=== PATIENT | female | born 1990 | race Caucasian/White ===

== ENCOUNTER 2023-08-09 08:36 | Emergency (ER) | payer BC, SELFPAY ==
[2023-08-09 08:47] VITALS: BP 127/86
[2023-08-09] MEDS: NSS 1000 IV (09:33)
[2023-08-09] MEDS: ZOFRAN 4 MG IV (09:33)
[2023-08-09 09:34] VITALS: BMI 17.9
[2023-08-09 09:36] LABS: % Basophils 0.9 % (0-2); % Immature Granulocytes 0.5 % (0-0.5); % Lymphocytes 6.1 % (20.5-51.1); % Monocytes 2.3 % (1.7-9.3); % Neutrophils 90.2 % (42.2-75.2); Absolute Basophils 0.1 10^3/uL (0-0.2); Absolute Immature Granulocytes 0.1 10^3/uL (0-0.05); Absolute Lymphocytes 0.7 10^3/uL (1.2-3.4); Absolute Monocytes 0.3 10^3/uL (0.1-0.6); Absolute Neutrophils 10.8 10^3/uL (1.4-6.5); Hematocrit 37.4 % (37.0-47.0); Hemoglobin 12.7 g/dL (12.0-16.0); Mean Corpuscular Hgb 28.2 pg (27.0-31.0); Mean Corpuscular Volume 82.9 fL (81.0-99.0); Mean Platelet Volume 10.2 fL (7.4-10.4); Nucleated Red Blood Cells % 0 %; Platelet Count 306 10^3/uL (130-400); Red Blood Cell Count 4.51 10^6/uL (4.20-5.40); Red Cell Dist. Width 12.6 % (11.5-14.5); White Blood Cell Count 11.9 10^3/uL (4.8-10.8)
--- NOTE | 2023-08-09 09:45 | ED.GENMED ---
History of Present Illness
General
Chief Complaint: Fainting/Passed Out
Source: patient and family
Exam Limitations: none
Time Seen by Provider: 08/09/23 08:52
Nursing documentation reviewed up to this point in time: agreed with
Travel History
Have you had any contact with someone who has COVID-19?: No
Do you have any symptoms of coronavirus? Fever > 100 degrees, chills, cough, shortness of breath, sore throat, loss of taste or smell, muscle aches, or headache?: No
History of Present Illness
History of Present Illness:
32-year-old female with past medical history of iron deficiency anemia presenting to the emergency department today with concerns of a syncopal episode prior to arrival. She claims that she had a mild headache and some lightheadedness last night
went to sleep and woke up early this morning 67 hours prior to arrival felt very nauseous and that she had to go to the bathroom stood up to go to the bathroom felt lightheaded and passed out to the ground is unsure how long she was unconscious as
nobody witnessed this specifically did wake up to see there was a laceration to her left lower lip. Then went to the bathroom had a large amount of diarrhea and ongoing vomiting for the next hour or so. Nobody around her was specifically sick. No
chest pain or shortness of breath no palpitations.
Review of Systems
Review of Systems
Allergies reviewed?: Yes
All Other Systems: ROS reviewed and negative except as documented in HPI and ROS
Phy Exam
Physical Exam
Physical Exam:
GENERAL: Alert , in no apparent distress
EYE: pupils equal and reactive
NECK: Supple, no significant adenopathy.
ENT: 1 cm laceration to the left lower lip does not cross the vermilion border is parallel to the lip just roughly 1 cm inferior to the left side. Does not appear to be through and through. o/p clr, mmm.
CARDIAC: Regular rate and rhythm .
LUNGS: Clear breath sounds bilaterally, no acute respiratory distress, no wheezes/rales/rhonchi
ABDOMEN: Soft, without focal tenderness, no r/g, no cvat
NEUROLOGICAL: Alert and oriented, no focal neuro deficits
SKIN: Warm and dry, skin intact.
MUSCULOSKELETAL: No edema, well perfused.
PSYCH: Normal and appropriate interaction.
Course
Orders/Labs/Results
Orders:
Orders
08/09/23 08:54
0.9% Sodium Chloride 1000 ml [Nss] 1,000 ml IV BOLUS
Ondansetron Injectable [Zofran] 4 mg IV NOW STA
08/09/23 08:55
Test Result ONCE
08/09/23 09:10
CT Head W/o Iv Contrast Urgent
Comment:
Reason For Exam: fall hit head, headache loc
08/09/23 09:27
Complete Blood Count/With Diff Urgent
Comprehensive Metabolic Panel Urgent
HCG, Serum Qualitative Screen Urgent
Urinalysis Reflex To Culture Urgent
Date Specimen was Collected: 08/09/23
Time Specimen was Collected: 09:19
08/09/23 09:35
ECG [Electrocardiogram (*1)] Urgent
Reason for Study: Syncope
EKG- Treatment ONCE
Abnormal Lab Results
08/09/23
09:27
WBC 11.9 H 10^3/uL
(4.8-10.8)
Abs Immat Gran (auto) 0.1 H 10^3/uL
(0-0.05)
Absolute Neuts (auto) 10.8 H 10^3/uL
(1.4-6.5)
Absolute Lymphs (auto) 0.7 L 10^3/uL
(1.2-3.4)
Neutrophils % 90.2 H %
(42.2-75.2)
Lymphocytes % 6.1 L %
(20.5-51.1)
Sodium 134 L mmol/L
(135-145)
BUN 6 L mg/dl
(7-17)
Creatinine 0.5 L mg/dL
(0.6-1.0)
Glucose 110 H mg/dl
(70-99)
Urine Ketones 2+ A
(Negative)
08/09/23 09:27
08/09/23 09:27
Vital Signs
Initial and Last Documented VS:
Initial Vital Signs
Temp Pulse Resp BP Pulse Ox
99.1 F 92 18 127/86 100
08/09/23 08:47 08/09/23 08:47 08/09/23 08:47 08/09/23 08:47 08/09/23 08:47
Last Documented Vital Signs
Temp Pulse Resp BP Pulse Ox
99.1 F 92 16 118/71 100
08/09/23 08:47 08/09/23 10:21 08/09/23 10:21 08/09/23 10:21 08/09/23 10:21
Procedures
Laceration Closure
Left Lower Lip:
Status of Wound: clean
Size of Wound in cm: 2.5
Description of Wound Edges: sharp
Preparation: cleaned with saline
Anesthesia: 1% Lidocaine with epi
Revision/Debridement: routine- no revision and irrigate-direct pressure
Wound exploration: explored to base- no FB and no tendon involvement
Type of Closure: single layer closure
Skin Closure Material: 6-0 nylon
Number of sutures: 5
MDM/Problems Addressed
MDM/Problems Addressed:
32-year-old female presenting to the emergency department today with concerns of syncopal episode a few hours prior to arrival to the emergency department. She claims that she felt stood up felt lightheaded passed out did find to have a laceration
to her left lower lip. Then had diarrhea and vomiting for the next few hours. Denies any chest pain shortness of breath feels much better at this point. Does have very mild ongoing headache. CT scan was obtained without acute abnormalities
normal neurologic evaluation here. Labs unremarkable EKG normal. No signs of emergent cause of syncope at this time. Laceration was through and through and patient was started on Keflex. Given this as prophylaxis. Otherwise laceration was
closed externally with 5 total sutures. 4 simple interrupted and 1 corner stitch. Otherwise patient stable for discharge return precautions given.
*Critical Care Note
Total Time (30-74mins, 75-104mins- exclusive of procedures): Not Applicable
ED Attending Note
-
Portions of this chart may have been created with voice recognition software.� Occasional wrong word or��sound alike� substitutions may have occurred due to the inherent limitations of voice recognition software.
Discharge Plan
Departure
Patient Disposition: Home (Routine Discharge)
Date of Disposition: 08/09/23
Time of Disposition: 11:10
Patient with high blood pressure during this ER visit?: No
Condition: Good
Covid-19: Not Applicable
Discharge Problem:
Syncope, Laceration of lip
Instructions: Laceration Repair With Stitches (DC)
Prescriptions:
New
cephalexin 500 mg capsule
500 mg PO TID 3 Days Qty: 9 0RF
Referrals:
Deep Lock MD [Family Provider] -
Activity Restrictions/Additional Instructions:
You came to the emergency department today with concerns of syncope episode as well as laceration to her left lower lip. Here you had a normal CT scan reassuring labs and reassuring EKG. Your laceration was closed with 5 total sutures including 4
simple interrupted and 1 corner stitch. Please keep the area clean covered and follow-up for suture removal in 6 to 8 days. Return to the emergency department for any worsening, new or concerning symptoms.
Interventions
Interventions:
*Risk Screen - Suicide Last Done: 08/09/23 09:25
*General Assessment Last Done: 08/09/23 09:25
*Neglect/Abuse Screening Last Done: 08/09/23 09:25
ED- Cardiac Assessment Last Done: 08/09/23 09:25
ED- Neurological Assessment Last Done: 08/09/23 09:25
[2023-08-09 09:51] LABS: HCG, Serum Qualitative Screen Negative
[2023-08-09 09:52] LABS: Urine Albumin Negative (Neg - Trace); Urine Bilirubin Negative (Negative); Urine Character Clear (Clear); Urine Color Straw; Urine Glucose Negative (Negative); Urine Ketone 2+ (Negative); Urine Leukocyte Negative (Negative); Urine Nitrite Negative (Negative); Urine Occult Blood Negative (Negative); Urine Urobilinogen Negative (Neg - 1+)
[2023-08-09 09:53] LABS: ALT (SGPT) 13 U/L (0-35); AST (SGOT) 20 U/L (14-36); Albumin 4.1 g/dl (3.5-5.0); Alkaline Phosphatase 45 U/L (38-126); Blood Urea Nitrogen 6 mg/dl (7-17); Calcium 9.7 mg/dl (8.4-10.2); Carbon Dioxide 22 mmol/L (22-30); Chloride 101 mmol/L (98-107); Estimated Creatinine Clearance 103 ml/min; Glucose 110 mg/dl (70-99); Sodium 134 mmol/L (135-145); Total Bilirubin 0.7 mg/dl (0.2-1.3); Total Protein 6.9 g/dl (6.3-8.2); eGFR > 60.00
[2023-08-09 10:21] VITALS: BP 118/71
[2023-08-09] MEDS: ADACEL 0.5 ML IM (11:47)
[2023-08-09 11:59] VITALS: BP 113/86
== END 2023-08-09 12:04 | disposition home or self-care (01) ==
LOC: EMR 08:36
PROVIDERS: Physician Assistant; EMERGENCY PHYSICIAN Emergency Medicine; FAMILY PHYSICIAN Family Medicine
DX: R55 Syncope and collapse (principal); S01.511A Laceration without foreign body of lip, initial encounter; W19.XXXA Unspecified fall, initial encounter; Z23 Encounter for immunization; D50.9 Iron deficiency anemia, unspecified
CPT/HCPCS: 99284; 12011; 96374; 96361; 90471; 70450; 80053; 81003; 84703; 85025; 90715; 93005